=== PATIENT | female | born 1980 | race Caucasian/White ===

== ENCOUNTER 2016-08-02 02:51 | Emergency (ER) | payer OTHER ==
[2016-08-02 03:08] VITALS: TEMP 98.1; BMI 38.9
--- NOTE | 2016-08-02 03:11 | PDOC ---
History of Present Illness - General History Source: Patient Exam Limitations: No Limitations - History of Present Illness Initial Comments: 08/02/16 03:43 The patient is a 36 year old female with a PMH of anxiety, psoriasis and acid reflux who presents to the ED today with 1 day of diffuse hives and upper lip swelling. She reports she hit her lip earlier today and it swelled up and then her arm broke out in hives. The patient was seen here on 06/05/16 for hives and was prescribed steroids. The patient also had hives in [place] recently and had tonsillar swelling and was given a short course of steroids. The patient reports when she stopped taking the steroids yesterday the hives came back. She also reports the hives are exacerbated with dry heat. Upon examination, the patient reports she is also developing a dry mouth. She denies feeling like her throat is closing up. She notes recent chills. Her last oral intake was kale soup with boiled broccoli and cauliflower. She notes that she has eaten this before with no issues. Denies: fever, headache, nausea, vomiting, diarrhea, shortness of breath and chest pain Allergies: NKDA PCP: Dr. Héctor Hicks Dials Inspector: Dr. Duke <Darcie Roberts - Last Filed: 08/02/16 05:00> - General History Source: Patient <MichaelCaleb lau - Last Filed: 08/02/16 05:45> - General Stated Complaint: FACE SWELLING Time Seen by Provider: 08/02/16 03:10 Past History <Darcie Roberts - Last Filed: 08/02/16 05:00> - Past Medical History GI Disorders: Yes (GERD) Other medical history: denies - Immunization History Immunization Up to Date: Yes - Psycho/Social/Smoking Cessation Hx Anxiety: No Suicidal Ideation: No Smoking Status: Yes Smoking History: Never smoked Number of Cigarettes Smoked Daily: 4 Cigars Per Day: 0 Information on smoking cessation initiated: No Hx Alcohol Use: No Drug/Substance Use Hx: No <Caleb Tran - Last Filed: 08/02/16 05:45> - Past Medical History Allergies/Adverse Reactions: Allergies Allergy/AdvReac Type Severity Reaction Status Date / Time No Known Allergies Allergy Verified 08/02/16 03:05 Home Medications: Ambulatory Orders Famotidine [Pepcid] 40 mg PO DAILY #30 tablet 08/02/16 Methylprednisolone [Medrol Dose Vini] 4 mg PO ASDIR #21 tablet 08/02/16 Review of Systems - Review of Systems Able to Perform ROS?: Yes Comments:: 08/02/16 03:44 CONSTITUTIONAL: +chils Absent: fever, no fatigue EYES: Absent: visual changes ENT: +Upper lip swelling. Absent: ear pain, no sore throat CARDIOVASCULAR: Absent: chest pain, no palpitations RESPIRATORY: Absent: cough, no SOB GI: Absent: abdominal pain, no nausea, no vomiting, no constipation, no diarrhea GENITOURINARY: Absent: dysuria, no frequency, no hematuria MUSKULOSKELETAL: Absent: back pain, no arthralgia, no myalgia SKIN: +Hives throughout body. NEURO: Absent: headache <Darcie Roberts - Last Filed: 08/02/16 05:00> *Physical Exam - Vital Signs Last Vital Signs Temp Pulse Resp BP Pulse Ox 98.1 F 89 20 123/61 100 08/02/16 03:06 08/02/16 03:06 08/02/16 03:06 08/02/16 03:06 08/02/16 03:06 - Physical Exam Comments: 08/02/16 03:44 GENERAL: Well-appearing, well-nourished. No apparent distress. HEENT: Normocephalic. Upper lip edema. PERRL, EOM intact. CARDIOVASCULAR: Normal S1, S2. Regular rate and rhythm. PULMONARY: Clear to auscultation bilaterally. ABDOMEN: Soft, non-distended, non-tender. EXTREMITIES: Normal ROM in all four extremities. No gross deformities. SKIN: Warm, dry. Hives throughout body. NEUROLOGICAL: No focal neurological deficits. <Darcie Roberts - Last Filed: 08/02/16 05:00> - Vital Signs Last Vital Signs Temp Pulse Resp BP Pulse Ox 98.1 F 89 20 123/61 100 08/02/16 03:06 08/02/16 03:06 08/02/16 03:06 08/02/16 03:06 08/02/16 03:06 <Caleb Tran - Last Filed: 08/02/16 05:45> ED Treatment Course - LABORATORY CBC & Chemistry Diagram: 08/02/16 04:05 08/02/16 04:05 <Darcie Roberts - Last Filed: 08/02/16 05:00> - LABORATORY CBC & Chemistry Diagram: 08/02/16 04:05 08/02/16 05:01 <Caleb Tran - Last Filed: 08/02/16 05:45> Medical Decision Making - Medical Decision Making 08/02/16 05:45 Dr. Tran: The scribe's documentation has been prepared under my direction and personally reviewed by me in its entirery. I confirm that the note above accurately reflects all work, treatment, procedures, and medical decision making performed by me. <Caleb Tran - Last Filed: 08/02/16 05:45> *DC/Admit/Observation/Transfer - Attestations Scribe Attestion: 08/02/16 03:46 Documentation prepared by Darcie Roberts, acting as medical communication specialist for Caleb Tran MD/DO. <Darcie Roberts - Last Filed: 08/02/16 05:00> - Discharge Dispostion Admit: No <Caleb Tran - Last Filed: 08/02/16 05:45> Diagnosis at time of Disposition: Hives Allergic reaction Qualifiers: Encounter type: subsequent encounter Qualified Code(s): T78.40XD - Allergy, unspecified, subsequent encounter - Discharge Dispostion Disposition: HOME Condition at time of disposition: Stable - Prescriptions Prescriptions: Methylprednisolone [Medrol Dose Vini] 4 mg PO ASDIR #21 tablet Famotidine [Pepcid] 40 mg PO DAILY #30 tablet - Referrals Referrals: Héctor Hicks MD [Primary Care Provider] - - Patient Instructions Printed Discharge Instructions: DI for Hives, DI for General Allergic Reactions
[2016-08-02] MEDS ORDERED: FAMOTIDINE 20 MG/50 ML IVPB 20 MG in PREMIX 50 IVPB ONE (03:27)
[2016-08-02] MEDS ORDERED: methylPREDNISolone NA SUCC 125 MG/2 ML VIAL IVPB ONE (03:27)
[2016-08-02] MEDS ORDERED: methylPREDNISolone NA SUCC 125 MG/2 ML VIAL ONE (03:42)
[2016-08-02] MEDS ORDERED: FAMOTIDINE 20 MG/50 ML IVPB 50 ML IVPB ONE (03:43)
[2016-08-02 05:04] LABS: BASOPHIL 0.7 % (0-2.0); EOSINOPHIL 1.2 % (0-4.5); MCH 29.6 pg (25.7-33.7); MCHC 31.9 g/dl (32.0-36.0); MEAN CELL VOLUME 93.1 fl (80-96); MEAN PLT VOLUME 8.6 fl (7.5-11.1); NEUTROPHILS 66.2 % (42.8-82.8); PLATELET COUNT 397 K/MM3 (134-434); RDW 13.4 % (11.6-15.6); WHITE BLOOD COUNT 12.8 K/mm3 (4.0-10.0)
[2016-08-02 05:28] LABS: CALCIUM 8.4 mg/dL (8.5-10.1); CREATININE 0.7 mg/dL (0.55-1.02)
[2016-08-02 06:15] VITALS: BP 120/80; PULSE 85
[2016-08-02 06:56] LABS: ERYTHROCYTE SEDIMENTATION RATE 27 mm/hr (0-20)
== END 2016-08-02 06:15 | disposition home or self-care (01) ==
LOC: JER 02:51
PROC: 3E033GC Introduction of Other Therapeutic Substance into Peripheral Vein, Percutaneous Approach (ICD-10-PCS; principal; 2016-08-02)
DX: T78.40XA Allergy, unspecified, initial encounter (principal); X58.XXXA Exposure to other specified factors, initial encounter; Y93.9 Activity, unspecified; L50.9 Urticaria, unspecified; F41.9 Anxiety disorder, unspecified; K21.9 Gastro-esophageal reflux disease without esophagitis; Z72.0 Tobacco use
CPT/HCPCS: 36415; 80048; 84703; 85025; 85651; 99282-25